=== PATIENT | female | born 1950 | race Asian ===

== ENCOUNTER 2017-01-20 19:04 | Outpatient (CLI) | payer OTHER ==
[2017-01-20] MEDS ORDERED: LISITAB PO (20:19)
[2017-01-20] MEDS ORDERED: ALPR0.5T24 PO (20:19)
[2017-01-20] MEDS ORDERED: AMBIEN5 MG PO (20:20)
== END 2017-01-20 19:21 | disposition short-term general hospital (02) ==
LOC: AMB 19:04
DX: M25.561 Pain in right knee (principal); V47.1XXA Car passenger injured in collision with fixed or stationary object in nontraffic accident, initial encounter; Y92.414 Local residential or business street as the place of occurrence of the external cause
CPT/HCPCS: A0425; A0427

== ENCOUNTER 2017-01-20 19:35 | Emergency (ER) | payer OTHER ==
[~2017-01-20] VITALS: Ht 167.6 cm; Wt 109.8 kg
[2017-01-20] MEDS ORDERED: LISITAB PO (20:19)
[2017-01-20] MEDS ORDERED: ALPR0.5T24 PO (20:19)
[2017-01-20] MEDS ORDERED: AMBIEN5 MG PO (20:20)
[2017-01-20 21:40] VITALS: BP 146/88; TEMP 98.3
== END 2017-01-20 21:42 | disposition home or self-care (01) ==
LOC: ED 19:35
DX: S80.11XA Contusion of right lower leg, initial encounter (principal); V49.3XXA Car occupant (driver) (passenger) injured in unspecified nontraffic accident, initial encounter; Y92.89 Other specified places as the place of occurrence of the external cause
CPT/HCPCS: 99283

== ENCOUNTER 2018-10-05 09:13 | Outpatient (CLI) | payer OTHER ==
[~2018-10-05 09:13] MED LIST: ALPR0.5T24 PO; AMBIEN5 MG PO; LISITAB PO
== END 2018-10-05 21:23 | disposition home or self-care (01) ==
LOC: RAD 09:13
DX: M85.89 Other specified disorders of bone density and structure, multiple sites (principal)